=== PATIENT | female | born 1960 | race African-American/Black ===

== ENCOUNTER 2017-11-29 13:54 | Emergency (ER) | payer MEDICAID ==
[~2017-11-29] VITALS: Ht 170.2 cm; Wt 95.0 kg
[~2017-11-29 13:54] MED LIST: ABIL10 PO; ALBUTEROL; ALLO100T PO; ASPI-1159 PO; ATOR10TA69 PO; BUME2TAB3 PO; CARV6.2548 PO; DEXT15DR26 OP; DOCU-150 PO; FERR325T6 PO; FURO-151 PO; HYDR-3280 MT; HYDR50CA5 PO; IBUP-2029 PO; LOSA50TA20 PO; METO25TA6 PO; METO5TAB69 PO; OLAN5TAB3 PO; POTA10TA15 PO; RANI150C12 PO; SERT-112 PO; TRAZ-132 PO; ZOLP5TAB8 PO; [UNRECOGNIZED DRUG - OTHER]
[2017-11-29 16:50] VITALS: BP 93/63
== END 2017-11-29 18:24 | disposition home or self-care (01) ==
LOC: ER 14:20
DX: R55 Syncope and collapse (principal); I11.0 Hypertensive heart disease with heart failure; I50.9 Heart failure, unspecified; J44.9 Chronic obstructive pulmonary disease, unspecified; Z87.891 Personal history of nicotine dependence; Z79.82 Long term (current) use of aspirin
CPT/HCPCS: 99284; Z7610